=== PATIENT | female | born 1955 | race Hispanic/Latino ===

== ENCOUNTER 2016-10-20 15:01 | Emergency (ER) | payer OTHER ==
[~2016-10-20] VITALS: Ht 160 cm; Wt 84.1 kg
[2016-10-20 15:01] VITALS: BP 127/78; PULSE 91; RESP 18; O2SAT 99
--- NOTE | 2016-10-20 16:01 | ED.REPORT ---
HPI-Extremity Problem Lower Date of Service Oct 20, 2016 ED Provider: Bean Farrell MD Patient is a 61 year old female who presents to the ED in a wheelchair complaining of R ankle and leg pain s/p a fall to the ground in her driveway just prior to arrival. Per son, she was walking in the driveway that was slick with rain when her left leg slipped forward and she fell to the ground, injuring her R leg. Associated symptoms include R ankle swelling. She denies hitting her head, LOC, numbness, weakness, or any other symptoms. She is not on any blood thinners. Nursing Notes Stated Complaint: RIGHT ANKLE PAIN FROM FALL Chief Complaint: Extremity Trauma Nursing Notes Reviewed: Yes Allergies: Coded Allergies: Penicillins (Verified Allergy, Mild, SWELLING OF EYES AND LIPS AND ITCHING , 10/20/16) General Time Seen by MD: 16:01 Chief Complaint Leg injury right Hx Obtained From: Patient, Son Arrived By: Walk-in Onset Occurred: Just prior to arrival Symptom Duration: Since onset Past Medical History Past Medical History Denies Past Surgical History Unknown Smoking History Unknown if Ever Smoker Social History Other Social History: Good social support Ambulatory Status Wheelchair Review of Systems Musculoskeletal: Reports: Extremity pain, Extremity swelling, Joint pain, Joint swelling, Denies: Neck pain Neurologic: Reports: Problem walking, Denies: Headache, Numbness, Weakness Complete sys rev & neg: except as marked. Physical Exam Initial Vital Signs Vital Signs (First) Date Time Temp Pulse Resp B/P Pulse Ox O2 Delivery O2 Flow Rate FiO2 10/20/16 15:01 36.9 91 18 127/78 99 Room Air Initial VS: Reviewed General/Constitutional: Well-developed, Well-nourished Head / Eyes: Atraumatic, Normocephalic Neck: Full range of motion Respiratory: Breath sounds normal, Clear to auscultation, No respiratory distress Cardiovascular: Regular rate & rhythm, Heart sounds normal, Intact distal pulses Abdomen / GI: Soft, Non-tender Skin: Warm, Dry Neurologic: Alert, Oriented, Nonfocal Psychiatric: Mood/affect normal, Behavior normal, Normal thought content Lower Extremity / Pelvis / MS: No deformity Tenderness at the R proximal fibula Right Ankle: Positive: Swelling present... R lateral ankle swelling Strong pedal pulses Interpretation & Diagnostics X-Ray Interpretation Xray Interpretation: IMPRESSION: Distal fibular fracture as above. Dictated by: Afsaneh Hendrickson M.D. on 10/20/2016 at 17:32 Approved by: Afsaneh Hendrickson M.D. on 10/20/2016 at 17:33 Study Performed: 3 views X-Ray Ordered: Ankle right Interpretation / Wet Read by: Interpret - Radiologist Xray Interpretation: IMPRESSION: Minimally displaced distal right fibular fracture with widening of the lateral mortise joint. Dictated by: Afsaneh Hendrickson M.D. on 10/20/2016 at 17:32 Approved by: Afsaneh Hendrickson M.D. on 10/20/2016 at 17:32 Study Performed: 2 views X-Ray Ordered: Tibia fibula right Interpretation / Wet Read by: Interpret - Radiologist Procedures Splint Application - Fx Mgt Time: 17:38 Procedure Performed by: ED physician Precise Anatomic Location: Posterior splint with side stirrup Post-Procedure / Complications: Cap refill normal, Post splint vascular nl, Post splint neuro nl, Condition improved, Tolerated procedure well Splint Post-Application Eval Extremity Condition: Cap refill < 2 sec, Distal sensation intact, Distal motor Intact Re-Eval/Medical Decision Re-Evaluation/Progress : Time of Eval: 17:38 Re-Evaluation/Progress Note: Discussed imaging results. Applied splint. Discussed plan for discharge. Patient understands and agrees with plan. All questions addressed at this time. Consultation : Referral / Consult Name: Michael Pak MD Consulted With: Orthopedic Call Returned at: 17:20 Web Administrator: Will see in office Note: Gave ortho name a date of of patient for followup. Will see patient in office. Counseled Regarding: Diagnosis, Lab results, Need for follow-up, When/why to return to ED Discharge & Departure Shift Change Sign-Out Response to Therapy: Improved Impression: Primary Impression: Fracture of distal fibula Encounter type: initial encounter Fracture alignment: displaced Laterality : right Qualified Code: S82.831A - Other fracture of upper and lower end of right fibula, initial encounter for closed fracture Disposition: Home Discharge Condition All VS Reviewed: Yes Condition: Improved Patient Instructions: Ankle Fracture (ED), Crutch Instructions (ED), Splint Care (ED) Additional Instructions: Crutches and nonweightbearing. Elevate your ankle as much as possible. Take Motrin 600 mg every 8 hours as needed for moderate pain. This is an over-the- counter medication. Take [place] 1-2 every 6 hours as needed for severe pain. This is a prescription opiate with acetaminophen. Do not take any other acetaminophen-containing products. Do not drive or drink alcohol while taking the [place]. I suspect that you may need surgery. Contact the referred orthopedic surgeon's office tomorrow to set up a follow-up for the next 5-7 days. If you have any numbness, weakness, increasing pain or tightness sensation in come back to the ER for a recheck. Do not hesitate to return if any problems or any worsening symptoms. Referrals: NOPCP (PCP) OTHER,PHYSICIAN (Family) Michael Pak MD Scribe Attestation Portions of this note were transcribed by Adry Newton. I, Dr. Farrell personally performed the history, physical exam and medical decision-making; I reviewed and confirmed the accuracy of the information in the transcribed note. Signed by: Adry Newton 10/20/16, 1803 Bean Farrell DO Oct 20, 2016 16:01 ADRY NEWTON Oct 20, 2016 16:13
[2016-10-20] MEDS ORDERED: HYDROcodone-APAP 5-325 mg Tablet PO ONE (16:05)
--- NOTE | 2016-10-20 17:34 | DRSVH ---
PROCEDURE: X-RAY RIGHT TIBIA/FIBULA, TWO VIEWS ([id number]) INDICATIONS: FALL, ANKLE ROLL TECHNIQUE: 2 views of the tibia and fibula were acquired. COMPARISON: None. FINDINGS: Bones: There is a minimally displaced obliquely oriented distal fibular fracture. No other fracture o r dislocation. There is mild widening of the lateral mortise joint. Soft tissues: No suspicious soft tissue calcifications or masses. IMPRESSION: Minimally displaced distal right fibular fracture with widening of the lateral mortise lavelle int. Dictated by: Afsaneh Hendrickson M.D. on 10/20/2016 at 17:32 Approved by: Afsaneh Hendrickson M.D. on 10/20/2016 at 17:32
--- NOTE | 2016-10-20 17:35 | DRSVH ---
PROCEDURE: X-RAY RIGHT ANKLE, MINIMUM THREE VIEWS ([id number]) INDICATIONS: FALL TECHNIQUE: 3 views of the ankle were acquired. COMPARISON: None. FINDINGS: Bones: There is a minimally displaced, obliquely oriented distal fibular fracture which extends to th e mortise joint. There is mild widening of the fibulotalar joint. No other fracture or dislocation. Soft tissues: There is lateral malleolar soft tissue swelling and a small tibiotalar joint effusion. IMPRESSION: Distal fibular fracture as above. Dictated by: Afsaneh Hendrickson M.D. on 10/20/2016 at 17:32 Approved by: Afsaneh Hendrickson M.D. on 10/20/2016 at 17:33
== END 2016-10-20 18:20 | disposition home or self-care (01) ==
LOC: SED 15:01
DX: S82.831A Other fracture of upper and lower end of right fibula, initial encounter for closed fracture (principal); W01.0XXA Fall on same level from slipping, tripping and stumbling without subsequent striking against object, initial encounter; Y93.01 Activity, walking, marching and hiking; Y92.89 Other specified places as the place of occurrence of the external cause; Y99.8 Other external cause status; Z88.0 Allergy status to penicillin